=== PATIENT | male | born 1955 | race Caucasian/White ===

== ENCOUNTER 2018-04-20 13:46 | Inpatient (IN) ==
[2018-04-20] MEDS ORDERED: methylPREDNISolone SOD SUC 125 MG/2 ML VIAL IV STA (14:02)
[2018-04-20] MEDS ORDERED: MAGNESIUM SULF RIDER 2 GM in PREMIX 1 EACH IV STA (14:02)
[2018-04-20] MEDS ORDERED: LEVOFLOXACIN INJ 500 MG in PREMIX 1 EACH IV STA (14:14)
[2018-04-20 14:20] LABS: ABG HCO3 25.3 MMOL/L (20-26); ABG Oxygen Saturation 99.5 % (95-100); ABG PCO2 63.6 MM HG (35-48); ABG PH 7.284 (7.35-7.45); ABG TCO2 25.9 MMOL/L (23-27)
[2018-04-20] MEDS ORDERED: ALBUTEROL NEB SOLN 5 MG/ML 20 ML/BOTTLE RESP TX SCH (14:30)
[2018-04-20 14:34] LABS: Basophils # 0.1 10*3/uL (0.0-0.2); Basophils % 0.8 % (0.0-0.8); Eosinophils # 1.1 10*3/uL (0.0-0.87); Eosinophils % 7.8 % (0.00-10.9); Hematocrit 49.3 VOL% (42.0-52.0); Immature Granulocytes % 0.4 %; Immature Granulocytes Absolute 0.06 #; Lymphocytes # 1.4 10*3/uL (1.4-4.0); Lymphocytes % 9.3 % (21.2-54.2); Mean Corpuscular HGB Conc 32.5 GM/DL (32-36); Mean Corpuscular Hemoglobin 31 PG (27-34); Mean Corpuscular Volume 94.8 FL (87-102); Mean Platelet Volume 10.1 FL (9.6-12.0); Monocytes # 0.7 10*3/uL (0.11-0.8); Monocytes % 5.1 % (1.7-12.7); Neutrophils # 11.1 10*3/uL (1.4-7.4); Neutrophils % 76.6 % (38.7-73.9); Platelet Count 203 T/CUMM (130-400); Red Cell Distribution Width 14.3 % (9.3-17.3); White Blood Count 14.5 T/CUMM (4-12)
[2018-04-20 14:47] LABS: PT Patient Result 10.2 SECS; Partial Thromboplastin Time 24.1 SECS (0-40)
[2018-04-20 14:50] LABS: Albumin 3.7 G/DL (3.4-5.0); Bilirubin,Total 0.4 MG/DL (0.2-1.0); Calcium 8.4 MG/DL (8.5-10.1); Osmolality,Calculated 279.4 MOS/KG (273-304); Potassium 4.3 MMOL/L (3.5-5.1); Total Protein 6.8 G/DL (6.4-8.3)
[2018-04-20 14:51] LABS: Troponin I Only 0.062 NG/ML (0.00-0.045)
[2018-04-20] MEDS ORDERED: ACETAMINOPHEN 325 MG TABLET PO PRN (16:29)
[2018-04-20] MEDS ORDERED: ONDANSETRON 4 MG/2 ML VIAL IV PRN (16:29)
[2018-04-20] MEDS ORDERED: ALBUTEROL/IPRATROPIUM 3 ML NEB RESP TX PRN (16:29)
[2018-04-20] MEDS: SODIUM CHLORIDE 0.9% 1,000 ML IV SCH (17:27)
[2018-04-20] MEDS: ENOXAPARIN 40 MG/0.4 ML SYRINGE SUBCUT SCH (17:27)
[2018-04-20] MEDS: methylPREDNISolone SOD SUC 125 MG/2 ML VIAL IV SCH (17:28)
[2018-04-20] MEDS: ALBUTEROL/IPRATROPIUM 3 ML NEB RESP TX SCH (19:15)
[2018-04-20] MEDS: PRAVASTATIN 20 MG TABLET PO SCH (20:10)
[2018-04-20] MEDS ORDERED: Glycopyrrolate/Formoterol Fum [Bevespi Aerosphere Inhaler] INH SCH (21:00)
[2018-04-21] MEDS: ALBUTEROL/IPRATROPIUM 3 ML NEB RESP TX SCH ×4 (01:26→19:03)
[2018-04-21] MEDS: methylPREDNISolone SOD SUC 125 MG/2 ML VIAL IV SCH ×3 (01:51→16:48)
[2018-04-21 04:08] LABS: ABG Base Excess -0.4 MMOL/L (-2.5-2.5); ABG HCO3 24.8 MMOL/L (20-26); ABG Oxygen Saturation 97.3 % (95-100); ABG PCO2 42.7 MM HG (35-48); ABG PH 7.382 (7.35-7.45); ABG PO2 100.1 MM HG (80-95); ABG TCO2 26.1 MMOL/L (23-27); Allen Test Positive
[2018-04-21] MEDS: PANTOPRAZOLE 40 MG TABLET PO SCH (08:12)
[2018-04-21] MEDS: LEVOFLOXACIN INJ 500 MG in PREMIX 1 EACH IV SCH (08:15)
[2018-04-21] MEDS: SODIUM CHLORIDE 0.9% 1,000 ML IV SCH ×2 (20:36)
[2018-04-21] MEDS: PRAVASTATIN 20 MG TABLET PO SCH (20:50)
[2018-04-22] MEDS: ALBUTEROL/IPRATROPIUM 3 ML NEB RESP TX SCH ×5 (00:01→23:54)
[2018-04-22] MEDS: methylPREDNISolone SOD SUC 125 MG/2 ML VIAL IV SCH ×3 (01:36→17:13)
[2018-04-22] MEDS: SODIUM CHLORIDE 0.9% 1,000 ML IV SCH ×3 (01:39→23:20)
[2018-04-22 06:23] LABS: Basophils % 0.1 % (0.0-0.8); Hematocrit 45.6 VOL% (42.0-52.0); Immature Granulocytes % 0.9 %; Immature Granulocytes Absolute 0.14 #; Lymphocytes # 0.4 10*3/uL (1.4-4.0); Lymphocytes % 2.9 % (21.2-54.2); Mean Corpuscular HGB Conc 32.9 GM/DL (32-36); Mean Corpuscular Hemoglobin 31 PG (27-34); Mean Corpuscular Volume 94.4 FL (87-102); Mean Platelet Volume 10.9 FL (9.6-12.0); Monocytes # 0.2 10*3/uL (0.11-0.8); Monocytes % 1.6 % (1.7-12.7); Neutrophils # 14.2 10*3/uL (1.4-7.4); Neutrophils % 94.5 % (38.7-73.9); Platelet Count 219 T/CUMM (130-400); Red Blood Count 4.83 MC/CUMM (3.8-5.5); Red Cell Distribution Width 14.4 % (9.3-17.3)
[2018-04-22 06:49] LABS: Calcium 8.5 MG/DL (8.5-10.1); Osmolality,Calculated 285.1 MOS/KG (273-304); Potassium 4.4 MMOL/L (3.5-5.1)
[2018-04-22 07:19] LABS: Band Neutrophils 1 % (0-10); Lymphocytes 2 % (20-55); Segmented Neutrophils 93 % (50-85); Total Cells Counted 100
[2018-04-22 07:20] LABS: Hypochromasia Slight; Platelet Estimate Adequate
[2018-04-22] MEDS: PANTOPRAZOLE 40 MG TABLET PO SCH (09:36)
[2018-04-22] MEDS: ENOXAPARIN 40 MG/0.4 ML SYRINGE SUBCUT SCH (09:48)
[2018-04-22] MEDS: LEVOFLOXACIN INJ 500 MG in PREMIX 1 EACH IV SCH (09:51)
[2018-04-22] MEDS: PRAVASTATIN 20 MG TABLET PO SCH (21:06)
[2018-04-23] MEDS: methylPREDNISolone SOD SUC 125 MG/2 ML VIAL IV SCH ×3 (00:38→17:09)
[2018-04-23] MEDS: ALBUTEROL/IPRATROPIUM 3 ML NEB RESP TX SCH ×3 (07:28→19:24)
[2018-04-23 08:06] LABS: Basophils % 0.1 % (0.0-0.8); Hematocrit 46.9 VOL% (42.0-52.0); Hemoglobin 15.2 GM/DL (14.0-18.0); Immature Granulocytes % 1.1 %; Immature Granulocytes Absolute 0.17 #; Lymphocytes # 0.5 10*3/uL (1.4-4.0); Mean Corpuscular HGB Conc 32.4 GM/DL (32-36); Mean Corpuscular Hemoglobin 31 PG (27-34); Mean Corpuscular Volume 94.9 FL (87-102); Mean Platelet Volume 10.5 FL (9.6-12.0); Monocytes # 0.3 10*3/uL (0.11-0.8); Monocytes % 1.8 % (1.7-12.7); Platelet Count 223 T/CUMM (130-400); Red Blood Count 4.94 MC/CUMM (3.8-5.5); Red Cell Distribution Width 14.2 % (9.3-17.3); White Blood Count 14.9 T/CUMM (4-12)
[2018-04-23 08:30] LABS: Calcium 8.4 MG/DL (8.5-10.1); Osmolality,Calculated 282.3 MOS/KG (273-304)
[2018-04-23] MEDS: LEVOFLOXACIN INJ 500 MG in PREMIX 1 EACH IV SCH (08:30)
[2018-04-23] MEDS: ENOXAPARIN 40 MG/0.4 ML SYRINGE SUBCUT SCH (08:31)
[2018-04-23] MEDS: PANTOPRAZOLE 40 MG TABLET PO SCH (08:31)
[2018-04-23 08:39] LABS: Band Neutrophils 3 % (0-10); Lymphocytes 3 % (20-55); Segmented Neutrophils 92 % (50-85); Total Cells Counted 100
[2018-04-23 08:40] LABS: Hypochromasia Slight; Microcytosis Slight; Platelet Estimate Normal
[2018-04-23] MEDS: PRAVASTATIN 20 MG TABLET PO SCH (21:00)
[2018-04-24] MEDS: ALBUTEROL/IPRATROPIUM 3 ML NEB RESP TX SCH ×4 (00:44→19:23)
[2018-04-24] MEDS: methylPREDNISolone SOD SUC 125 MG/2 ML VIAL IV SCH ×3 (00:56→20:50)
[2018-04-24] MEDS: SODIUM CHLORIDE 0.9% 1,000 ML IV SCH ×3 (01:56→15:57)
[2018-04-24 05:05] LABS: Basophils % 0.1 % (0.0-0.8); Hematocrit 42.4 VOL% (42.0-52.0); Hemoglobin 14.2 GM/DL (14.0-18.0); Immature Granulocytes % 1.2 %; Immature Granulocytes Absolute 0.14 #; Lymphocytes # 0.3 10*3/uL (1.4-4.0); Lymphocytes % 2.6 % (21.2-54.2); Mean Corpuscular HGB Conc 33.5 GM/DL (32-36); Mean Corpuscular Hemoglobin 31 PG (27-34); Mean Corpuscular Volume 92.8 FL (87-102); Mean Platelet Volume 10.9 FL (9.6-12.0); Monocytes # 0.2 10*3/uL (0.11-0.8); Monocytes % 1.9 % (1.7-12.7); Neutrophils # 11.4 10*3/uL (1.4-7.4); Neutrophils % 94.2 % (38.7-73.9); Platelet Count 221 T/CUMM (130-400); Red Blood Count 4.57 MC/CUMM (3.8-5.5); Red Cell Distribution Width 14.3 % (9.3-17.3); White Blood Count 12.1 T/CUMM (4-12)
[2018-04-24 05:54] LABS: Band Neutrophils 1 % (0-10); Lymphocytes 5 % (20-55); Segmented Neutrophils 93 % (50-85); Total Cells Counted 100
[2018-04-24 05:55] LABS: Hypochromasia 1+; Microcytosis Slight; Platelet Estimate Normal
[2018-04-24] MEDS: LEVOFLOXACIN INJ 500 MG in PREMIX 1 EACH IV SCH (09:08)
[2018-04-24] MEDS: ENOXAPARIN 40 MG/0.4 ML SYRINGE SUBCUT SCH (09:09)
[2018-04-24] MEDS: PANTOPRAZOLE 40 MG TABLET PO SCH (09:10)
[2018-04-24] MEDS: PRAVASTATIN 20 MG TABLET PO SCH (20:49)
[2018-04-25] MEDS: ALBUTEROL/IPRATROPIUM 3 ML NEB RESP TX SCH ×4 (01:57→19:18)
[2018-04-25] MEDS: SODIUM CHLORIDE 0.9% 1,000 ML IV SCH (04:50)
[2018-04-25 06:15] LABS: Basophils % 0.2 % (0.0-0.8); Hematocrit 46.7 VOL% (42.0-52.0); Hemoglobin 15.1 GM/DL (14.0-18.0); Immature Granulocytes % 1.3 %; Immature Granulocytes Absolute 0.15 #; Lymphocytes # 0.4 10*3/uL (1.4-4.0); Lymphocytes % 3.4 % (21.2-54.2); Mean Corpuscular HGB Conc 32.3 GM/DL (32-36); Mean Corpuscular Hemoglobin 31 PG (27-34); Mean Corpuscular Volume 95.1 FL (87-102); Mean Platelet Volume 11.3 FL (9.6-12.0); Monocytes # 0.5 10*3/uL (0.11-0.8); Monocytes % 4.2 % (1.7-12.7); Neutrophils # 10.7 10*3/uL (1.4-7.4); Neutrophils % 90.9 % (38.7-73.9); Platelet Count 203 T/CUMM (130-400); Red Blood Count 4.91 MC/CUMM (3.8-5.5); Red Cell Distribution Width 14.2 % (9.3-17.3); White Blood Count 11.7 T/CUMM (4-12)
[2018-04-25 07:28] LABS: Hypochromasia 1+; Lymphocytes 6 % (20-55); Segmented Neutrophils 90 % (50-85); Total Cells Counted 100
[2018-04-25 07:29] LABS: Platelet Estimate Normal
[2018-04-25] MEDS: PANTOPRAZOLE 40 MG TABLET PO SCH (08:51)
[2018-04-25] MEDS: LEVOFLOXACIN 500 MG TABLET PO SCH (08:51)
[2018-04-25] MEDS: ENOXAPARIN 40 MG/0.4 ML SYRINGE SUBCUT SCH (08:51)
[2018-04-25] MEDS: methylPREDNISolone SOD SUC 125 MG/2 ML VIAL IV SCH ×2 (08:51→21:17)
[2018-04-25] MEDS: PRAVASTATIN 20 MG TABLET PO SCH (21:16)
[2018-04-26] MEDS: ALBUTEROL/IPRATROPIUM 3 ML NEB RESP TX SCH ×2 (00:06→08:00)
[2018-04-26] MEDS: LEVOFLOXACIN 500 MG TABLET PO SCH (08:45)
[2018-04-26] MEDS: ENOXAPARIN 40 MG/0.4 ML SYRINGE SUBCUT SCH (08:46)
[2018-04-26] MEDS: methylPREDNISolone SOD SUC 125 MG/2 ML VIAL IV SCH (08:46)
[2018-04-26] MEDS: PANTOPRAZOLE 40 MG TABLET PO SCH (08:46)
[2018-04-26] MEDS ORDERED: FUROSEMIDE 40 MG/4 ML VIAL IV ONE (11:00)
[2018-04-26 11:46] VITALS: BP 142/81
== END 2018-04-26 14:24 | disposition home or self-care (01) | DRG 189 ==
LOC: EDUNIT# → N.ED 13:46 → SUATTDRO 16:05 → N.EDINP 16:05 → N.2E 16:37
PROVIDERS: ADMIT Internal Medicine; ATTEND Internal Medicine